=== PATIENT | male | born 1995 | race American Indian/Alaskan Native ===

== ENCOUNTER 2018-11-09 22:34 | Emergency (ER) | payer MEDICAID ==
[2018-11-09 23:11] VITALS: BP 122/87
== END 2018-11-10 01:00 | disposition left against medical advice (07) ==
LOC: ED 22:34
DX: Z20.2 Contact with and (suspected) exposure to infections with a predominantly sexual mode of transmission (principal); Z53.21 Procedure and treatment not carried out due to patient leaving prior to being seen by health care provider

== ENCOUNTER 2018-12-12 16:50 | Emergency (ER) | payer MEDICAID ==
--- NOTE | 2018-12-12 17:32 | Event Note ---
ED Screening Note ED Screening Note: pt presents with left eye redness that began a few days ago watery drainage no one else with the same thing no fever no vision changes did not get anything in the eye PMHx bipolar, ADD no allergies to meds This initial assessment/diagnostic orders/clinical plan/treatment(s) is/are subject to change based on patients health status, clinical progression and re- assessment by fellow clinical providers in the ED. Further treatment and workup at subsequent clinical providers discretion. Patient/guardian urged not to elope from the ED as their condition may be serious if not clinically assessed and managed.
[2018-12-12 17:33] VITALS: BP 130/74
--- NOTE | 2018-12-12 17:36 | Emergency Department Report ---
ED Eye Problem HPI - General Chief complaint: Eye Problems Stated complaint: PINK EYE? Time Seen by Provider: 12/12/18 17:28 Source: patient Mode of arrival: Ambulatory Limitations: No Limitations - History of Present Illness Initial comments: pt is a 23 yo male who presents to the ED with left eye redness that began a few days ago. He states he has noticed watery drainage. he denies anyone else with the same thing. he denies any fever, vision changes. he denies getting anything in the eye. PMHx bipolar, ADD. no allergies to meds - Related Data Home Medications Medication Instructions Recorded Confirmed Last Taken ARIPiprazole [Abilify] 5 mg PO DAILY 11/26/13 11/26/13 Unknown Guanfacine HCl [Intuniv] 3 mg PO DAILY 11/26/13 11/26/13 Unknown Lisdexamfetamine Dimesylate 50 mg PO DAILY 11/26/13 11/26/13 Unknown [Vyvanse] hydrOXYzine PAMOATE (NF) [Vistaril 25 mg PO BID PRN 11/26/13 11/26/13 Unknown (Nf)] Previous Rx's Medication Instructions Recorded Last Taken Type Cyclobenzaprine [Flexeril 10mg] 10 mg PO TID PRN #30 tablet 01/14/14 Unknown Rx HYDROcodone/APAP 7.5-325 [[place] 1 each PO Q8HR PRN #10 tablet 01/14/14 Unknown Rx 7.5-325 mg TAB] Ibuprofen [Motrin] 800 mg PO Q8H #20 tablet 01/14/14 Unknown Rx Cyclobenzaprine [Flexeril] 10 mg PO TID PRN #30 tablet 05/05/15 Unknown Rx traMADol [Ultram 50 MG tab] 50 mg PO Q6HR PRN #20 tablet 05/05/15 Unknown Rx Ibuprofen [Motrin 800 MG tab] 800 mg PO Q8HR PRN #12 tablet 04/07/17 Unknown Rx Azithromycin [Zithromax Z-YOHAN] 250 mg PO DAILY #6 tablet 04/03/18 Unknown Rx Benzonatate [Tessalon Perle] 100 mg PO Q8H PRN #20 capsule 04/03/18 Unknown Rx Prednisone [predniSONE 10 mg 10 mg PO .TAPER #1 tab.ds.pk 04/03/18 Unknown Rx (6-Day Pack, 21 Tabs)] Azithromycin [Zithromax Z-YOHAN] 250 mg PO DAILY #6 tablet 04/08/18 Unknown Rx Prednisone [predniSONE 10 mg 10 mg PO .TAPER #1 tab.ds.pk 04/08/18 Unknown Rx (6-Day Pack, 21 Tabs)] Erythromycin [Erythromycin Ophth 0.5 inch OP QID 7 Days #1 tube 12/12/18 Unknown Rx Oint] Allergies Allergy/AdvReac Type Severity Reaction Status Date / Time lactose AdvReac Vomiting Verified 12/12/18 16:51 ED Review of Systems ROS: Stated complaint: PINK EYE? Other details as noted in HPI Comment: All other systems reviewed and negative ED Past Medical Hx - Past Medical History Previous Medical History?: Yes Hx Hypertension: No Hx CVA: No Hx Heart Attack/AMI: No Hx Congestive Heart Failure: No Hx Diabetes: No Hx Deep Vein Thrombosis: No Hx Pulmonary Embolism: No Hx GERD: No Hx Liver Disease: No Hx Sickle Cell Disease: No Hx Arthritis: No Hx Headaches / Migraines: No Hx Seizures: No Hx Kidney Stones: No Hx Psychiatric Treatment: Yes (bipolar, depression, ADD, ODD) Hx Asthma: No Hx COPD: No Hx Tuberculosis: No Hx Dementia: No Hx HIV: No Additional medical history: ADHD - Surgical History Past Surgical History?: No Hx Coronary Stent: No Hx Pacemaker: No Hx Internal Defibrillator: No Hx Cholecystectomy: No Hx Breast Surgery: No - Social History Smoking Status: Never Smoker Substance Use Type: Alcohol, Marijuana - Medications Home Medications: Home Medications Medication Instructions Recorded Confirmed Last Taken Type ARIPiprazole [Abilify] 5 mg PO DAILY 11/26/13 11/26/13 Unknown History Guanfacine HCl [Intuniv] 3 mg PO DAILY 11/26/13 11/26/13 Unknown History Lisdexamfetamine Dimesylate 50 mg PO DAILY 11/26/13 11/26/13 Unknown History [Vyvanse] hydrOXYzine PAMOATE (NF) [Vistaril 25 mg PO BID PRN 11/26/13 11/26/13 Unknown History (Nf)] Cyclobenzaprine [Flexeril 10mg] 10 mg PO TID PRN #30 tablet 01/14/14 Unknown Rx HYDROcodone/APAP 7.5-325 [[place] 1 each PO Q8HR PRN #10 tablet 01/14/14 Unknown Rx 7.5-325 mg TAB] Ibuprofen [Motrin] 800 mg PO Q8H #20 tablet 01/14/14 Unknown Rx Cyclobenzaprine [Flexeril] 10 mg PO TID PRN #30 tablet 05/05/15 Unknown Rx traMADol [Ultram 50 MG tab] 50 mg PO Q6HR PRN #20 tablet 05/05/15 Unknown Rx Ibuprofen [Motrin 800 MG tab] 800 mg PO Q8HR PRN #12 tablet 04/07/17 Unknown Rx Azithromycin [Zithromax Z-YOHAN] 250 mg PO DAILY #6 tablet 04/03/18 Unknown Rx Benzonatate [Tessalon Perle] 100 mg PO Q8H PRN #20 capsule 04/03/18 Unknown Rx Prednisone [predniSONE 10 mg 10 mg PO .TAPER #1 tab.ds.pk 04/03/18 Unknown Rx (6-Day Pack, 21 Tabs)] Azithromycin [Zithromax Z-YOHAN] 250 mg PO DAILY #6 tablet 04/08/18 Unknown Rx Prednisone [predniSONE 10 mg 10 mg PO .TAPER #1 tab.ds.pk 04/08/18 Unknown Rx (6-Day Pack, 21 Tabs)] Erythromycin [Erythromycin Ophth 0.5 inch OP QID 7 Days #1 tube 12/12/18 Unknown Rx Oint] ED Physical Exam - General Limitations: No Limitations General appearance: alert, in no apparent distress - Head Head exam: Present: atraumatic, normocephalic - Eye Eye exam: Present: PERRL, EOMI, conjunctival injection (left ), other (colored contacts on, mucus drainage in the corner of the left eye) - ENT ENT exam: Present: mucous membranes moist - Neurological Exam Neurological exam: Present: alert, oriented X3 - Psychiatric Psychiatric exam: Present: normal affect, normal mood - Skin Skin exam: Present: warm, dry, intact ED Course Vital Signs 12/12/18 17:29 Temperature 98.3 F Pulse Rate 72 Respiratory 16 Rate Blood Pressure 130/74 [Right] O2 Sat by Pulse 98 Oximetry ED Medical Decision Making - Medical Decision Making pt is a 23 yo male who presents to the ED with left eye redness that began a few days ago. He states he has noticed watery drainage. he denies anyone else with the same thing. he denies any fever, vision changes. he denies getting anything in the eye. PMHx bipolar, ADD. no allergies to meds. examination consistent with conjunctivitis. pt given prescription for erythromycin ointment. advised to please use medication as prescribed. please remove your contacts. do not put contacts back in until you have completed the course of antibiotics. may wear eyeglasses until then. return to the emergency room for any new or worsening symptoms. Critical care attestation.: If time is entered above; I have spent that time in minutes in the direct care of this critically ill patient, excluding procedure time. ED Disposition Clinical Impression: Conjunctivitis Qualifiers: Conjunctivitis type: acute Acute conjunctivitis type: unspecified Laterality: left Qualified Code(s): H10.32 - Unspecified acute conjunctivitis, left eye Disposition: TO HOME OR SELFCARE Is pt being admited?: No Does the pt Need Aspirin: No Condition: Stable Instructions: Conjunctivitis (ED) Additional Instructions: please use medication as prescribed. please remove your contacts. do not put contacts back in until you have completed the course of antibiotics. may wear eyeglasses until then. return to the emergency room for any new or worsening s ymptoms. Prescriptions: Erythromycin [Erythromycin Ophth Oint] 0.5 inch OP QID 7 Days #1 tube Referrals: [facility] [Outside] - 2-3 Days [facility] [Provider Group] - 2-3 Days [facility] [Outside] - 2-3 Days Time of Disposition: 17:34 Print Language: BRUNEIAN
== END 2018-12-12 17:49 | disposition home or self-care (01) ==
LOC: ED 16:50
DX: H10.32 Unspecified acute conjunctivitis, left eye (principal); F31.9 Bipolar disorder, unspecified; F32.9 Major depressive disorder, single episode, unspecified; F90.9 Attention-deficit hyperactivity disorder, unspecified type; F12.10 Cannabis abuse, uncomplicated
CPT/HCPCS: 99282

== ENCOUNTER 2019-01-20 11:55 | Emergency (ER) | payer MEDICAID ==
--- NOTE | 2019-01-20 12:28 | Event Note ---
ED Screening Note Date of service: 01/20/19 Time: 12:25 ED Screening Note: 23 y/o male comes in for left eye irritation times 6 days. Wears contact. Took them out this morning. This initial assessment/diagnostic orders/clinical plan/treatment(s) is/are subject to change based on patients health status, clinical progression and re- assessment by fellow clinical providers in the ED. Further treatment and workup at subsequent clinical providers discretion. Patient/guardian urged not to elope from the ED as their condition may be serious if not clinically assessed and managed. Initial orders include:
--- NOTE | 2019-01-20 15:15 | Emergency Department Report ---
ED Eye Problem HPI - General Chief complaint: Eye Problems Stated complaint: POSSIBLE PINK EYE Time Seen by Provider: 01/20/19 12:25 Source: patient Mode of arrival: Ambulatory Limitations: No Limitations - History of Present Illness Initial comments: Noel is a 23-year-old male with a left red eye. He wears contact lenses. He wore a recent area of contact lenses for 3 weeks consecutively. Intact vision amount irritation. Left upper eyelid swelling. 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 [place] chief complaint: eye redness -: Gradual, days(s) (2) Onset Description: awoke with symptoms Location: left eye Eye Symptoms: burning Severity: mild Consistency: constant - Related Data Home Medications Medication Instructions Recorded Confirmed Last Taken ARIPiprazole [Abilify] 5 mg PO DAILY 11/26/13 11/26/13 Unknown Guanfacine HCl [Intuniv] 3 mg PO DAILY 11/26/13 11/26/13 Unknown Lisdexamfetamine Dimesylate 50 mg PO DAILY 11/26/13 11/26/13 Unknown [Vyvanse] hydrOXYzine PAMOATE (NF) [Vistaril 25 mg PO BID PRN 11/26/13 11/26/13 Unknown (Nf)] Previous Rx's Medication Instructions Recorded Last Taken Type Cyclobenzaprine [Flexeril 10mg] 10 mg PO TID PRN #30 tablet 01/14/14 Unknown Rx HYDROcodone/APAP 7.5-325 [[place] 1 each PO Q8HR PRN #10 tablet 01/14/14 Unknown Rx 7.5-325 mg TAB] Ibuprofen [Motrin] 800 mg PO Q8H #20 tablet 01/14/14 Unknown Rx Cyclobenzaprine [Flexeril] 10 mg PO TID PRN #30 tablet 05/05/15 Unknown Rx traMADol [Ultram 50 MG tab] 50 mg PO Q6HR PRN #20 tablet 05/05/15 Unknown Rx Ibuprofen [Motrin 800 MG tab] 800 mg PO Q8HR PRN #12 tablet 04/07/17 Unknown Rx Azithromycin [Zithromax Z-YOHAN] 250 mg PO DAILY #6 tablet 04/03/18 Unknown Rx Benzonatate [Tessalon Perle] 100 mg PO Q8H PRN #20 capsule 04/03/18 Unknown Rx Prednisone [predniSONE 10 mg 10 mg PO .TAPER #1 tab.ds.pk 04/03/18 Unknown Rx (6-Day Pack, 21 Tabs)] Azithromycin [Zithromax Z-YOHAN] 250 mg PO DAILY #6 tablet 04/08/18 Unknown Rx Prednisone [predniSONE 10 mg 10 mg PO .TAPER #1 tab.ds.pk 04/08/18 Unknown Rx (6-Day Pack, 21 Tabs)] Erythromycin [Erythromycin Ophth 0.5 inch OP QID 7 Days #1 tube 12/12/18 Unknown Rx Oint] Gatifloxacin 1 drop OP QID 7 Days #1 bottle 01/20/19 Unknown Rx Allergies Allergy/AdvReac Type Severity Reaction Status Date / Time lactose AdvReac Vomiting Verified 12/12/18 16:51 ED Review of Systems ROS: Stated complaint: POSSIBLE PINK EYE Other details as noted in HPI Constitutional: denies: fever, malaise Eyes: eye pain ENT: denies: congestion Respiratory: denies: cough, shortness of breath ED Past Medical Hx - Past Medical History Previous Medical History?: Yes Hx Hypertension: No Hx CVA: No Hx Heart Attack/AMI: No Hx Congestive Heart Failure: No Hx Diabetes: No Hx Deep Vein Thrombosis: No Hx Pulmonary Embolism: No Hx GERD: No Hx Liver Disease: No Hx Sickle Cell Disease: No Hx Arthritis: No Hx Headaches / Migraines: No Hx Seizures: No Hx Kidney Stones: No Hx Psychiatric Treatment: Yes (bipolar, depression, ADD, ODD) Hx Asthma: No Hx COPD: No Hx Tuberculosis: No Hx Dementia: No Hx HIV: No Additional medical history: ADHD - Surgical History Hx Coronary Stent: No Hx Pacemaker: No Hx Internal Defibrillator: No Hx Cholecystectomy: No Hx Breast Surgery: No - Social History Smoking Status: Never Smoker Substance Use Type: Marijuana - Medications Home Medications: Home Medications Medication Instructions Recorded Confirmed Last Taken Type ARIPiprazole [Abilify] 5 mg PO DAILY 11/26/13 11/26/13 Unknown History Guanfacine HCl [Intuniv] 3 mg PO DAILY 11/26/13 11/26/13 Unknown History Lisdexamfetamine Dimesylate 50 mg PO DAILY 11/26/13 11/26/13 Unknown History [Vyvanse] hydrOXYzine PAMOATE (NF) [Vistaril 25 mg PO BID PRN 11/26/13 11/26/13 Unknown History (Nf)] Cyclobenzaprine [Flexeril 10mg] 10 mg PO TID PRN #30 tablet 01/14/14 Unknown Rx HYDROcodone/APAP 7.5-325 [[place] 1 each PO Q8HR PRN #10 tablet 01/14/14 Unknown Rx 7.5-325 mg TAB] Ibuprofen [Motrin] 800 mg PO Q8H #20 tablet 01/14/14 Unknown Rx Cyclobenzaprine [Flexeril] 10 mg PO TID PRN #30 tablet 05/05/15 Unknown Rx traMADol [Ultram 50 MG tab] 50 mg PO Q6HR PRN #20 tablet 05/05/15 Unknown Rx Ibuprofen [Motrin 800 MG tab] 800 mg PO Q8HR PRN #12 tablet 04/07/17 Unknown Rx Azithromycin [Zithromax Z-YOHAN] 250 mg PO DAILY #6 tablet 04/03/18 Unknown Rx Benzonatate [Tessalon Perle] 100 mg PO Q8H PRN #20 capsule 04/03/18 Unknown Rx Prednisone [predniSONE 10 mg 10 mg PO .TAPER #1 tab.ds.pk 04/03/18 Unknown Rx (6-Day Pack, 21 Tabs)] Azithromycin [Zithromax Z-YOHAN] 250 mg PO DAILY #6 tablet 04/08/18 Unknown Rx Prednisone [predniSONE 10 mg 10 mg PO .TAPER #1 tab.ds.pk 04/08/18 Unknown Rx (6-Day Pack, 21 Tabs)] Erythromycin [Erythromycin Ophth 0.5 inch OP QID 7 Days #1 tube 12/12/18 Unknown Rx Oint] Gatifloxacin 1 drop OP QID 7 Days #1 bottle 01/20/19 Unknown Rx ED Physical Exam - General Limitations: No Limitations General appearance: alert, in no apparent distress - Eye Eye exam: Present: PERRL, conjunctival injection, other (stye left eye). Absent: scleral icterus - Neck Neck exam: Present: normal inspection, full ROM - Respiratory Respiratory exam: Absent: respiratory distress - Neurological Exam Neurological exam: Present: alert, oriented X3 - Psychiatric Psychiatric exam: Present: normal affect, normal mood ED Course Vital Signs 01/20/19 12:25 Temperature 98.8 F Pulse Rate 81 Respiratory 16 Rate Blood Pressure 139/77 O2 Sat by Pulse 99 Oximetry ED Medical Decision Making - Medical Decision Making Noel has left eye conjunctivitis. With recurrent issues, will need ophthalmology evaluation this week +stye Critical care attestation.: If time is entered above; I have spent that time in minutes in the direct care of this critically ill patient, excluding procedure time. ED Disposition Clinical Impression: Conjunctivitis, left eye, Stye Disposition: DC- TO HOME OR SELFCARE Is pt being admited?: No Does the pt Need Aspirin: No Condition: Stable Instructions: Conjunctivitis (ED), Stye (ED) Additional Instructions: You must see you your personal eye doctor this week. 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
[2019-01-20 15:25] VITALS: BP 134/71
== END 2019-01-20 15:24 | disposition home or self-care (01) ==
LOC: ED 11:55
DX: H10.9 Unspecified conjunctivitis (principal); H00.014 Hordeolum externum left upper eyelid; F31.9 Bipolar disorder, unspecified; F98.8 Other specified behavioral and emotional disorders with onset usually occurring in childhood and adolescence; F90.9 Attention-deficit hyperactivity disorder, unspecified type; F12.10 Cannabis abuse, uncomplicated; Z79.899 Other long term (current) drug therapy
CPT/HCPCS: 99282

== ENCOUNTER 2021-01-22 20:49 | Emergency (ER) | payer MEDICAID ==
[2021-01-23 02:50] VITALS: BP 136/66
--- NOTE | 2021-01-23 12:50 | Emergency Department Report ---
ED N/V/D HPI - General Chief complaint: Nausea/Vomiting/Diarrhea Stated complaint: VOMITING Time Seen by Provider: 01/23/21 12:42 Source: patient Mode of arrival: Ambulatory Limitations: No Limitations - History of Present Illness Initial comments: 25-year-old -[place] male presents to the emergency room for nausea and vomiting that started on Sunday. Patient last vomited was yesterday at 8 PM. He denies any abdominal pain no chest pain no fever no chills no shortness of breath no urinary signs or symptoms. Patient has a history of bipolar depression ADD and OCD as well as ADHD. MD complaint: nausea, vomiting - Related Data Home Medications Medication Instructions Recorded Confirmed Last Taken ARIPiprazole [Abilify] 5 mg PO DAILY 11/26/13 11/26/13 Unknown Guanfacine HCl [Intuniv] 3 mg PO DAILY 11/26/13 11/26/13 Unknown Lisdexamfetamine Dimesylate 50 mg PO DAILY 11/26/13 11/26/13 Unknown [Vyvanse] hydrOXYzine PAMOATE (NF) [Vistaril 25 mg PO BID PRN 11/26/13 11/26/13 Unknown (Nf)] Previous Rx's Medication Instructions Recorded Last Taken Type Cyclobenzaprine [Flexeril 10mg] 10 mg PO TID PRN #30 tablet 01/14/14 Unknown Rx HYDROcodone/APAP 7.5-325 [[place] 1 each PO Q8HR PRN #10 tablet 01/14/14 Unknown Rx 7.5-325 mg TAB] Ibuprofen [Motrin] 800 mg PO Q8H #20 tablet 01/14/14 Unknown Rx Cyclobenzaprine [Flexeril] 10 mg PO TID PRN #30 tablet 05/05/15 Unknown Rx traMADoL [Ultram 50 MG tab] 50 mg PO Q6HR PRN #20 tablet 05/05/15 Unknown Rx Ibuprofen [Motrin 800 MG tab] 800 mg PO Q8HR PRN #12 tablet 04/07/17 Unknown Rx Azithromycin [Zithromax Z-YOHAN] 250 mg PO DAILY #6 tablet 04/03/18 Unknown Rx Benzonatate [Tessalon Perle] 100 mg PO Q8H PRN #20 capsule 04/03/18 Unknown Rx Prednisone [predniSONE 10 mg 10 mg PO .TAPER #1 tab.ds.pk 04/03/18 Unknown Rx (6-Day Pack, 21 Tabs)] Azithromycin [Zithromax Z-YOHAN] 250 mg PO DAILY #6 tablet 04/08/18 Unknown Rx Prednisone [predniSONE 10 mg 10 mg PO .TAPER #1 tab.ds.pk 04/08/18 Unknown Rx (6-Day Pack, 21 Tabs)] Erythromycin [Erythromycin Ophth 0.5 inch OP QID 7 Days #1 tube 12/12/18 Unknown Rx Oint] Gatifloxacin 1 drop OP QID 7 Days #1 bottle 01/20/19 Unknown Rx Allergies Allergy/AdvReac Type Severity Reaction Status Date / Time lactose AdvReac Vomiting Verified 12/12/18 16:51 ED Review of Systems ROS: Stated complaint: VOMITING Other details as noted in HPI ED Past Medical Hx - Past Medical History Previous Medical History?: Yes Hx Hypertension: No Hx CVA: No Hx Heart Attack/AMI: No Hx Congestive Heart Failure: No Hx Diabetes: No Hx Deep Vein Thrombosis: No Hx Pulmonary Embolism: No Hx GERD: No Hx Liver Disease: No Hx Sickle Cell Disease: No Hx Arthritis: No Hx Headaches / Migraines: No Hx Seizures: No Hx Kidney Stones: No Hx Psychiatric Treatment: Yes (bipolar, depression, ADD, ODD) Hx Asthma: No Hx COPD: No Hx Tuberculosis: No Hx Dementia: No Hx HIV: No Additional medical history: ADHD - Surgical History Past Surgical History?: No Hx Coronary Stent: No Hx Pacemaker: No Hx Internal Defibrillator: No Hx Cholecystectomy: No Hx Breast Surgery: No - Social History Smoking Status: Never Smoker Substance Use Type: None - Medications Home Medications: Home Medications Medication Instructions Recorded Confirmed Last Taken Type ARIPiprazole [Abilify] 5 mg PO DAILY 11/26/13 11/26/13 Unknown History Guanfacine HCl [Intuniv] 3 mg PO DAILY 11/26/13 11/26/13 Unknown History Lisdexamfetamine Dimesylate 50 mg PO DAILY 11/26/13 11/26/13 Unknown History [Vyvanse] hydrOXYzine PAMOATE (NF) [Vistaril 25 mg PO BID PRN 11/26/13 11/26/13 Unknown History (Nf)] Cyclobenzaprine [Flexeril 10mg] 10 mg PO TID PRN #30 tablet 08/13/14 Unknown Rx HYDROcodone/APAP 7.5-325 [[place] 1 each PO Q8HR PRN #10 tablet 01/14/14 Unknown Rx 7.5-325 mg TAB] Ibuprofen [Motrin] 800 mg PO Q8H #20 tablet 01/14/14 Unknown Rx Cyclobenzaprine [Flexeril] 10 mg PO TID PRN #30 tablet 05/05/15 Unknown Rx traMADoL [Ultram 50 MG tab] 50 mg PO Q6HR PRN #20 tablet 05/05/15 Unknown Rx Ibuprofen [Motrin 800 MG tab] 800 mg PO Q8HR PRN #12 tablet 04/07/17 Unknown Rx Azithromycin [Zithromax Z-YOHAN] 250 mg PO DAILY #6 tablet 04/03/18 Unknown Rx Benzonatate [Tessalon Perle] 100 mg PO Q8H PRN #20 capsule 04/03/18 Unknown Rx Prednisone [predniSONE 10 mg 10 mg PO .TAPER #1 tab.ds.pk 04/03/18 Unknown Rx (6-Day Pack, 21 Tabs)] Azithromycin [Zithromax Z-YOHAN] 250 mg PO DAILY #6 tablet 04/08/18 Unknown Rx Prednisone [predniSONE 10 mg 10 mg PO .TAPER #1 tab.ds.pk 04/08/18 Unknown Rx (6-Day Pack, 21 Tabs)] Erythromycin [Erythromycin Ophth 0.5 inch OP QID 7 Days #1 tube 12/12/18 Unknown Rx Oint] Gatifloxacin 1 drop OP QID 7 Days #1 bottle 01/20/19 Unknown Rx ED Physical Exam - General Limitations: No Limitations General appearance: alert, in no apparent distress - Head Head exam: Present: atraumatic, normocephalic - Eye Eye exam: Present: normal appearance - ENT ENT exam: Present: mucous membranes moist - Neck Neck exam: Present: normal inspection - Respiratory Respiratory exam: Present: normal lung sounds bilaterally. Absent: respiratory distress - Cardiovascular Cardiovascular Exam: Present: regular rate, normal rhythm. Absent: systolic murmur, diastolic murmur, rubs, gallop - GI/Abdominal GI/Abdominal exam: Present: soft, normal bowel sounds - Rectal Rectal exam: Present: deferred - Extremities Exam Extremities exam: Present: normal inspection - Back Exam Back exam: Present: normal inspection - Neurological Exam Neurological exam: Present: alert, oriented X3 - Psychiatric Psychiatric exam: Present: normal affect, normal mood - Skin Skin exam: Present: warm, dry, intact, normal color. Absent: rash ED Course Vital Signs 01/23/21 02:43 Temperature 98.7 F Pulse Rate 65 Respiratory 18 Rate Blood Pressure 136/66 O2 Sat by Pulse 98 Oximetry ED Medical Decision Making - Medical Decision Making 25-year-old -[place] male presents to the emergency room for nausea and vomiting that started on Sunday. Patient last vomited was yesterday at 8 PM. He denies any abdominal pain no chest pain no fever no chills no shortness of breath no urinary signs or symptoms. Patient has a history of bipolar depression ADD and OCD as well as ADHD. Patient has been in our ER for greater than 10 hours without any nausea vomiting or pain. Patient will be discharged home and to follow-up with her primary care provider. Patient is instructed to increase his fluid intake advance his diet as tolerated. Critical care attestation.: If time is entered above; I have spent that time in minutes in the direct care of this critically ill patient, excluding procedure time. ED Disposition Clinical Impression: Nausea and vomiting in adult patient Disposition: 01 HOME / SELF CARE / HOMELESS Is pt being admited?: No Does the pt Need Aspirin: No Condition: Stable Instructions: Nausea and Vomiting, Adult, [id number] Additional Instructions: Increase your fluids advance her diet as tolerated. Follow-up with your primary care provider. Referrals: PRIMARY CAREMD [Primary Care Provider] - 3-5 Days [facility] [Provider Group] - 3-5 Days Forms: Work/School Release Form(ED) Time of Disposition: 12:46
== END 2021-01-23 12:51 | disposition home or self-care (01) ==
LOC: ED 20:49
DX: R11.2 Nausea with vomiting, unspecified (principal); F31.9 Bipolar disorder, unspecified; Z79.899 Other long term (current) drug therapy; Z88.8 Allergy status to other drugs, medicaments and biological substances
CPT/HCPCS: 99282

== ENCOUNTER 2021-09-13 17:21 | Emergency (ER) | payer MEDICAID ==
--- NOTE | 2021-09-13 19:55 | Emergency Department Report ---
- General Chief complaint: Extremity Injury, Lower Stated complaint: GLASS STUCK IN RT HEEL Time Seen by Provider: 09/13/21 18:57 Source: patient Mode of arrival: Ambulatory Limitations: No Limitations - History of Present Illness Initial comments: 26 yo black male with no pmh presents to ed for evaluation of glass to right heel. He states that he was racing about 3 weeks ago and stepped in glass and has not been able to get it out. He states that area is now painful when he walks. He denies fever and discharge from area. MD complaint: foreign body -: Sudden, week(s) (3) Tetanus Up to Date: yes Location: R foot Severity scale (0 -10): 4 Quality: aching Consistency: constant Worsens with: other (walking) Context: none Associated symptoms: denies other symptoms - Related Data Home Medications Medication Instructions Recorded Confirmed Last Taken ARIPiprazole [Abilify] 5 mg PO DAILY 11/26/13 11/26/13 Unknown Guanfacine HCl [Intuniv] 3 mg PO DAILY 11/26/13 11/26/13 Unknown Lisdexamfetamine Dimesylate 50 mg PO DAILY 11/26/13 11/26/13 Unknown [Vyvanse] hydrOXYzine PAMOATE (NF) [Vistaril 25 mg PO BID PRN 11/26/13 11/26/13 Unknown (Nf)] Previous Rx's Medication Instructions Recorded Last Taken Type Cyclobenzaprine [Flexeril 10mg] 10 mg PO TID PRN #30 tablet 01/14/14 Unknown Rx HYDROcodone/APAP 7.5-325 [[place] 1 each PO Q8HR PRN #10 tablet 01/14/14 Unknown Rx 7.5-325 mg TAB] Ibuprofen [Motrin] 800 mg PO Q8H #20 tablet 01/14/14 Unknown Rx Cyclobenzaprine [Flexeril] 10 mg PO TID PRN #30 tablet 05/05/15 Unknown Rx traMADoL [Ultram 50 MG tab] 50 mg PO Q6HR PRN #20 tablet 05/05/15 Unknown Rx Ibuprofen [Motrin 800 MG tab] 800 mg PO Q8HR PRN #12 tablet 04/07/17 Unknown Rx Azithromycin [Zithromax Z-YOHAN] 250 mg PO DAILY #6 tablet 04/03/18 Unknown Rx Benzonatate [Tessalon Perle] 100 mg PO Q8H PRN #20 capsule 04/03/18 Unknown Rx Prednisone [predniSONE 10 mg 10 mg PO .TAPER #1 tab.ds.pk 04/03/18 Unknown Rx (6-Day Pack, 21 Tabs)] Azithromycin [Zithromax Z-YOHAN] 250 mg PO DAILY #6 tablet 04/08/18 Unknown Rx Prednisone [predniSONE 10 mg 10 mg PO .TAPER #1 tab.ds.pk 04/08/18 Unknown Rx (6-Day Pack, 21 Tabs)] Erythromycin [Erythromycin Ophth 0.5 inch OP QID 7 Days #1 tube 12/12/18 Unknown Rx Oint] Gatifloxacin 1 drop OP QID 7 Days #1 bottle 01/20/19 Unknown Rx Mupirocin [Bactroban 2%] 1 applic TP BID 7 Days #1 tube 09/13/21 Unknown Rx Allergies Allergy/AdvReac Type Severity Reaction Status Date / Time lactose AdvReac Vomiting Verified 12/12/18 16:51 Abscess Boil HPI - HPI Chief Complaint: Extremity Injury, Lower Stated Complaint: GLASS STUCK IN RT HEEL Time Seen by Provider: 09/13/21 18:57 Home Medications: Home Medications Medication Instructions Recorded Confirmed Last Taken ARIPiprazole [Abilify] 5 mg PO DAILY 11/26/13 11/26/13 Unknown Guanfacine HCl [Intuniv] 3 mg PO DAILY 11/26/13 11/26/13 Unknown Lisdexamfetamine Dimesylate 50 mg PO DAILY 11/26/13 11/26/13 Unknown [Vyvanse] hydrOXYzine PAMOATE (NF) [Vistaril 25 mg PO BID PRN 11/26/13 11/26/13 Unknown (Nf)] Previous Rx's Medication Instructions Recorded Last Taken Type Cyclobenzaprine [Flexeril 10mg] 10 mg PO TID PRN #30 tablet 01/14/14 Unknown Rx HYDROcodone/APAP 7.5-325 [[place] 1 each PO Q8HR PRN #10 tablet 01/14/14 Unknown Rx 7.5-325 mg TAB] Ibuprofen [Motrin] 800 mg PO Q8H #20 tablet 01/14/14 Unknown Rx Cyclobenzaprine [Flexeril] 10 mg PO TID PRN #30 tablet 05/05/15 Unknown Rx traMADoL [Ultram 50 MG tab] 50 mg PO Q6HR PRN #20 tablet 05/05/15 Unknown Rx Ibuprofen [Motrin 800 MG tab] 800 mg PO Q8HR PRN #12 tablet 04/07/17 Unknown Rx Azithromycin [Zithromax Z-YOHAN] 250 mg PO DAILY #6 tablet 04/03/18 Unknown Rx Benzonatate [Tessalon Perle] 100 mg PO Q8H PRN #20 capsule 04/03/18 Unknown Rx Prednisone [predniSONE 10 mg 10 mg PO .TAPER #1 tab.ds.pk 04/03/18 Unknown Rx (6-Day Pack, 21 Tabs)] Azithromycin [Zithromax Z-YOHAN] 250 mg PO DAILY #6 tablet 04/08/18 Unknown Rx Prednisone [predniSONE 10 mg 10 mg PO .TAPER #1 tab.ds.pk 04/08/18 Unknown Rx (6-Day Pack, 21 Tabs)] Erythromycin [Erythromycin Ophth 0.5 inch OP QID 7 Days #1 tube 12/12/18 Unknown Rx Oint] Gatifloxacin 1 drop OP QID 7 Days #1 bottle 01/20/19 Unknown Rx Mupirocin [Bactroban 2%] 1 applic TP BID 7 Days #1 tube 09/13/21 Unknown Rx Allergies/Adverse Reactions: Allergies Allergy/AdvReac Type Severity Reaction Status Date / Time lactose AdvReac Vomiting Verified 12/12/18 16:51 ED Review of Systems ROS: Stated complaint: GLASS STUCK IN RT HEEL Other details as noted in HPI Comment: All other systems reviewed and negative Constitutional: denies: chills, fever Respiratory: denies: SOB with exertion Cardiovascular: denies: chest pain, palpitations Gastrointestinal: denies: abdominal pain, nausea, vomiting Musculoskeletal: denies: back pain Skin: denies: rash Neurological: denies: headache ED Past Medical Hx - Past Medical History Previous Medical History?: Yes Hx Hypertension: No Hx CVA: No Hx Heart Attack/AMI: No Hx Congestive Heart Failure: No Hx Diabetes: No Hx Deep Vein Thrombosis: No Hx Pulmonary Embolism: No Hx GERD: No Hx Liver Disease: No Hx Sickle Cell Disease: No Hx Arthritis: No Hx Headaches / Migraines: No Hx Seizures: No Hx Kidney Stones: No Hx Psychiatric Treatment: Yes (bipolar, depression, ADD, ODD) Hx Asthma: No Hx COPD: No Hx Tuberculosis: No Hx Dementia: No Hx HIV: No Additional medical history: ADHD - Surgical History Past Surgical History?: No Hx Coronary Stent: No Hx Pacemaker: No Hx Internal Defibrillator: No Hx Cholecystectomy: No Hx Breast Surgery: No - Social History Smoking Status: Never Smoker Substance Use Type: None - Medications Home Medications: Home Medications Medication Instructions Recorded Confirmed Last Taken Type ARIPiprazole [Abilify] 5 mg PO DAILY 11/26/13 11/26/13 Unknown History Guanfacine HCl [Intuniv] 3 mg PO DAILY 11/26/13 11/26/13 Unknown History Lisdexamfetamine Dimesylate 50 mg PO DAILY 11/26/13 11/26/13 Unknown History [Vyvanse] hydrOXYzine PAMOATE (NF) [Vistaril 25 mg PO BID PRN 11/26/13 11/26/13 Unknown History (Nf)] Cyclobenzaprine [Flexeril 10mg] 10 mg PO TID PRN #30 tablet 01/14/14 Unknown Rx HYDROcodone/APAP 7.5-325 [[place] 1 each PO Q8HR PRN #10 tablet 01/14/14 Unknown Rx 7.5-325 mg TAB] Ibuprofen [Motrin] 800 mg PO Q8H #20 tablet 01/14/14 Unknown Rx Cyclobenzaprine [Flexeril] 10 mg PO TID PRN #30 tablet 05/05/15 Unknown Rx traMADoL [Ultram 50 MG tab] 50 mg PO Q6HR PRN #20 tablet 05/05/15 Unknown Rx Ibuprofen [Motrin 800 MG tab] 800 mg PO Q8HR PRN #12 tablet 04/07/17 Unknown Rx Azithromycin [Zithromax Z-YOHAN] 250 mg PO DAILY #6 tablet 04/03/18 Unknown Rx Benzonatate [Tessalon Perle] 100 mg PO Q8H PRN #20 capsule 04/03/18 Unknown Rx Prednisone [predniSONE 10 mg 10 mg PO .TAPER #1 tab.ds.pk 04/03/18 Unknown Rx (6-Day Pack, 21 Tabs)] Azithromycin [Zithromax Z-YOHAN] 250 mg PO DAILY #6 tablet 04/08/18 Unknown Rx Prednisone [predniSONE 10 mg 10 mg PO .TAPER #1 tab.ds.pk 04/08/18 Unknown Rx (6-Day Pack, 21 Tabs)] Erythromycin [Erythromycin Ophth 0.5 inch OP QID 7 Days #1 tube 12/12/18 Unknown Rx Oint] Gatifloxacin 1 drop OP QID 7 Days #1 bottle 01/20/19 Unknown Rx Mupirocin [Bactroban 2%] 1 applic TP BID 7 Days #1 tube 09/13/21 Unknown Rx ED Physical Exam - General Limitations: No Limitations General appearance: alert, in no apparent distress - Head Head exam: Present: atraumatic, normocephalic - Eye Eye exam: Present: normal appearance. Absent: conjunctival injection - Neck Neck exam: Present: normal inspection - Respiratory Respiratory exam: Absent: respiratory distress - Cardiovascular Cardiovascular Exam: Present: regular rate - GI/Abdominal GI/Abdominal exam: Absent: distended - Expanded Lower Extremity Exam Left Foot/Toe exam: Present: tenderness, swelling, foreign body. Absent: calcaneal tenderness, tenderness at base of 5th metatarsal Neuro vascular tendon exam: Present: no vascular compromise. Absent: pulse deficit, abnormal cap refill Gait: Positive: observed and limited by pain 1 - foreign body noted to area with minimal erythema and edema. glass noted to be sticking out of area. - Back Exam Back exam: Present: normal inspection - Neurological Exam Neurological exam: Present: alert - Psychiatric Psychiatric exam: Present: normal affect, normal mood - Skin Skin exam: Present: warm, dry, normal color ED Course Vital Signs 09/13/21 09/13/21 17:51 20:59 Temperature 98.8 F Pulse Rate 75 77 Respiratory 18 14 Rate Blood Pressure 127/73 122/76 [Right] O2 Sat by Pulse 98 100 Oximetry - Procedure Description Procedures done: Foreign body removal from right heel: area cleaned with betadine then saline, anesthisized with 2 cc of Lidocaine then small incision placed over area where glass is felt. Small, intact piece of glass removed with forceps. No bleeding or drainage noted, patient tolerated well. Area then cleaned again with betadine and ns and bandaid applied. ED Medical Decision Making - Medical Decision Making 26 yo black male with no pmh presents to ed for evaluation of glass to right heel. He states that he was racing about 3 weeks ago and stepped in glass and has not been able to get it out. He states that area is now painful when he walks. He denies fever and discharge from area. Noted to have piece of glass to right heel area on exam. Glass removed per procedure note, and patient tolerated well. No signs of infection noted. Patient is advised to place bactroban to area bid for the next 5-7 days, monitor for signs of infection and return to ed if any noted. He verbalized understanding of and agreement with plan of care. Critical care attestation.: If time is entered above; I have spent that time in minutes in the direct care of this critically ill patient, excluding procedure time. ED Disposition Clinical Impression: Foreign body (FB) in soft tissue Disposition: 01 HOME / SELF CARE / HOMELESS Is pt being admited?: No Does the pt Need Aspirin: No Condition: Stable Instructions: Hand or Foot Foreign Body, Adult Additional Instructions: Take medication as prescribed. Monitor for signs of infection. Return to the emergency department if any noted. Prescriptions: Mupirocin [Bactroban 2%] 1 applic TP BID 7 Days #1 tube Referrals: BEN DUNCAN MD [Referring] - 3-5 Days Time of Disposition: 19:55
[2021-09-13 20:59] VITALS: BP 122/76
== END 2021-09-13 21:00 | disposition home or self-care (01) ==
LOC: ED 17:21
DX: S90.851A Superficial foreign body, right foot, initial encounter (principal); F31.9 Bipolar disorder, unspecified; Z79.899 Other long term (current) drug therapy; Z91.09 Other allergy status, other than to drugs and biological substances; X58.XXXA Exposure to other specified factors, initial encounter; Y93.89 Activity, other specified; Y92.89 Other specified places as the place of occurrence of the external cause; Y99.8 Other external cause status
CPT/HCPCS: 99282